=== PATIENT | male | born 1935 | race Caucasian/White ===

== ENCOUNTER 2018-01-14 21:23 | Observation (INO) | payer OTHER ==
[2018-01-14 21:28] VITALS: BP 156/81; PULSE 90; RESP 16; O2SAT 100
[2018-01-14 21:33] VITALS: O2SAT 98
[2018-01-14] MEDS ORDERED: LITH150C PO (21:36)
[2018-01-14 21:37] VITALS: TEMP 97.8
[2018-01-14] MEDS ORDERED: PAXI10TA8 PO (21:41)
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
--- NOTE | 2018-01-14 22:24 | RADRPT ---
EXAM DATE/TIME: 01/14/2018 21:51 [facility] COMPARISON: No previous studies available for comparison. INDICATIONS : Cough MEDICAL HISTORY : Cardiovascular disease. SURGICAL HISTORY : CABG. Pacemaker. ENCOUNTER: Initial ACUITY: 1 day PAIN SCORE: 0/10 LOCATION: chest FINDINGS: A single view of the chest demonstrates a pacer lead overlying right atrium and right ventricle. Basa l atelectasis. No effusion. No pneumothorax. CONCLUSION: 1. Basilar atelectasis. Pacer leads in right atrium and right ventricle. Previous sternotomy. Jesus Manuel Graham MD on January 14, 2018 at 22:20 Board Certified Radiologist. This report was verified electronically.
[2018-01-14 22:26] LABS: AUTOMATED NEUTROPHIL # 10.2 TH/MM3 (1.8-7.7); BASOPHIL # 0.1 TH/MM3 (0-0.2); BASOPHIL % 0.5 % (0.0-2.0); EOSINOPHIL # 0.1 TH/MM3 (0-0.4); EOSINOPHIL % 0.9 % (0.0-4.0); HEMOGLOBIN 12.8 GM/DL (13.0-17.0); LYMPH % 11.6 % (9.0-44.0); LYMPHOCYTE # 1.5 TH/MM3 (1.0-4.8); MEAN CELL VOLUME 88.6 FL (80.0-100.0); MEAN CORPUSCULAR HEMOGLOBIN 30.6 PG (27.0-34.0); MEAN CORPUSCULAR HGB CONC 34.6 % (32.0-36.0); MEAN PLATELET VOLUME 7.9 FL (7.0-11.0); MONOCYTE # 1.3 TH/MM3 (0-0.9); PLATELET COUNT 273 TH/MM3 (150-450); RED BLOOD COUNT 4.17 MIL/MM3 (4.50-5.90); RED CELL DISTRIBUTION WIDTH 14.9 % (11.6-17.2); WHITE BLOOD COUNT 13.3 TH/MM3 (4.0-11.0)
[2018-01-14 22:37] LABS: INTERNATIONAL NORMALIZED RATIO 1.1 RATIO; PROTHROMBIN TIME - PATIENT 10.7 SEC (9.8-11.6)
[2018-01-14 22:48] LABS: ALBUMIN 3.9 GM/DL (3.4-5.0); ALT (GPT) 42 U/L (12-78); AST (GOT) 61 U/L (15-37); BICARBONATE 24.6 MEQ/L (21.0-32.0); BLOOD UREA NITROGEN 28 MG/DL (7-18); CALCIUM 8.4 MG/DL (8.5-10.1); CHLORIDE 105 MEQ/L (98-107); CREATININE 1.15 MG/DL (0.60-1.30); GLOMERULAR FILTRATION RATE 61 ML/MIN (>89); GLUCOSE,RANDOM 98 MG/DL (74-106); SODIUM (NA) 140 MEQ/L (136-145)
[2018-01-14 22:57] LABS: ALKALINE PHOSPHATASE 69 U/L (45-117); TOTAL BILIRUBIN ADULT 1.2 MG/DL (0.2-1.0); TOTAL PROTEIN 7.4 GM/DL (6.4-8.2); TROPONIN I 0.02 NG/ML (0.02-0.05)
[2018-01-15] VITALS (7 sets, daily range): BP systolic 122–161; BP diastolic 72–97; PULSE 79–100; RESP 16–22; TEMP 97.6–98.5; O2SAT 97–98
[2018-01-15] MEDS ORDERED: MAGNESIUM HYDROXIDE SUSP 30 ML CUP PO PRN (00:45)
[2018-01-15] MEDS ORDERED: SODIUM CHLOR 0.9% 1000 ML INJ 1,000 ML IV SCH (00:45)
[2018-01-15] MEDS ORDERED: ONDANSETRON HCL 4 MG/2 ML VIAL IVP PRN (00:45)
[2018-01-15] MEDS ORDERED: BISACODYL 10 MG SUPP RECTAL PRN (00:45)
[2018-01-15] MEDS ORDERED: SODIUM CHLORIDE 0.9% FLUSH 10 ML FLUSH IV FLUSH PRN (00:45)
[2018-01-15] MEDS ORDERED: ACETAMINOPHEN 325 MG TAB PO PRN (00:45)
[2018-01-15] MEDS ORDERED: LACTULOSE SYRUP 20 GM/30 ML CUP PO PRN (00:45)
[2018-01-15] MEDS ORDERED: ACETAMINOPHEN/HYDROcodone 325 MG/5 MG TAB PO PRN (00:45)
[2018-01-15] MEDS ORDERED: SENNOSIDES 8.6 MG TAB PO PRN (00:45)
[2018-01-15] MEDS ORDERED: ACETAMINOPHEN/HYDROcodone 325 MG/10 MG TAB PO PRN (00:45)
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
[2018-01-15 06:30] LABS: TROPONIN I 0.02 NG/ML (0.02-0.05)
[2018-01-15] MEDS ORDERED: LITHIUM CARBONATE 300 MG TAB PO SCH (09:00)
[2018-01-15] MEDS ORDERED: SODIUM CHLORIDE 0.9% FLUSH 10 ML FLUSH IV FLUSH SCH (09:00)
[2018-01-15] MEDS ORDERED: PARoxetine HCL 20 MG TAB PO SCH (09:00)
[2018-01-15] MEDS: DOCUSATE SODIUM 50 MG/SENNA 8.6 MG TAB PO SCH ×2 (09:00→09:32)
[2018-01-15 10:46] LABS: BILIRUBIN, URINE NEG (NEG); BLOOD, URINE TRACE (NEG); GLUCOSE,URINE NEG (NEG); KETONE, URINE TRACE mg/dL (NEG); MUCUS URINE FEW /lpf (OCC); NITRITE,URINE NEG (NEG); PH, URINE 5.5 (5.0-8.5); SQUAMOUS EPITHELIAL CELL URINE <1 /hpf (0-5); URINE COLOR YELLOW (YELLW/STRAW); URINE LEUKOCYTE ESTERASE NEG (NEG)
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
[2018-01-15] MEDS ORDERED: METO25TA3 PO (11:23)
[2018-01-15] MEDS ORDERED: ECASA81 PO (11:23)
[2018-01-15] MEDS ORDERED: ENAL5TAB PO (11:23)
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
[2018-01-15 12:01] LABS: AUTOMATED NEUTROPHIL # 4.6 TH/MM3 (1.8-7.7); BASOPHIL # 0.1 TH/MM3 (0-0.2); BASOPHIL % 0.9 % (0.0-2.0); EOSINOPHIL # 0.3 TH/MM3 (0-0.4); EOSINOPHIL % 4.2 % (0.0-4.0); HEMATOCRIT 37.5 % (39.0-51.0); HEMOGLOBIN 12.9 GM/DL (13.0-17.0); LYMPHOCYTE # 1.6 TH/MM3 (1.0-4.8); MEAN CELL VOLUME 87.9 FL (80.0-100.0); MEAN CORPUSCULAR HEMOGLOBIN 30.4 PG (27.0-34.0); MEAN CORPUSCULAR HGB CONC 34.5 % (32.0-36.0); MEAN PLATELET VOLUME 7.3 FL (7.0-11.0); MONO % 11.2 % (0.0-8.0); MONOCYTE # 0.8 TH/MM3 (0-0.9); NEUT % 61.7 % (16.0-70.0); PLATELET COUNT 221 TH/MM3 (150-450); RED BLOOD COUNT 4.26 MIL/MM3 (4.50-5.90); RED CELL DISTRIBUTION WIDTH 15.3 % (11.6-17.2); WHITE BLOOD COUNT 7.5 TH/MM3 (4.0-11.0)
[2018-01-15 12:24] LABS: ALBUMIN 3.6 GM/DL (3.4-5.0); AST (GOT) 47 U/L (15-37); BICARBONATE 22.8 MEQ/L (21.0-32.0); BLOOD UREA NITROGEN 19 MG/DL (7-18); CALCIUM 8.3 MG/DL (8.5-10.1); CHLORIDE 107 MEQ/L (98-107); CREATININE 0.98 MG/DL (0.60-1.30); GLOMERULAR FILTRATION RATE 74 ML/MIN (>89); GLUCOSE,RANDOM 107 MG/DL (74-106); SODIUM (NA) 139 MEQ/L (136-145)
[2018-01-15 12:25] LABS: ALT (GPT) 36 U/L (12-78)
[2018-01-15 12:29] LABS: ALKALINE PHOSPHATASE 70 U/L (45-117); TOTAL BILIRUBIN ADULT 1.5 MG/DL (0.2-1.0); TOTAL PROTEIN 6.8 GM/DL (6.4-8.2); TROPONIN I LESS THAN 0.02 NG/ML (0.02-0.05)
[2018-01-15] MEDS ORDERED: METOPROLOL TARTRATE 25 MG TAB PO SCH (21:00)
[2018-01-15] MEDS ORDERED: ENALAPRIL MALEATE 5 MG TAB PO SCH (21:00)
[2018-01-16] MEDS ORDERED: ASPIRIN EC 81 MG TABEC PO SCH (09:00)
--- NOTE | 2018-01-18 13:16 | EKG ---
Date Performed: 01/14/2018 Time Performed: 21:33:39 PTAGE: 82 years EKG: Sinus rhythm WITH SHORT NJ INTERVAL WITH OCCASIONAL VENTRICULAR PREMATURE COMPLEXES WITH FREQUENT SUPRAVENTRICULA R PREMATURE COMPLEXES IN A BIGEMINAL PATTERN ANTEROLATERAL MYOCARDIAL INFARCTION MODERATE T-WAVE ABNO RMALITY, CONSIDER INFERIOR ISCHEMIA ABNORMAL ECG NO PREVIOUS TRACING DOCTOR: Froylan Felipe Interpretating Date/Time 01/18/2018 13:14:56
== END 2018-01-15 12:23 | disposition home or self-care (01) ==
LOC: NEPC 21:23 → INTOOBSV 01-15 00:18 → NEDA 01-15 00:18 → HCIS 01-15 03:15
PROVIDERS: ADMIT Family Medicine; ATTEND Family Medicine
DX: T82.198A Other mechanical complication of other cardiac electronic device, initial encounter (principal); M62.82 Rhabdomyolysis; D72.829 Elevated white blood cell count, unspecified; I11.0 Hypertensive heart disease with heart failure; I50.9 Heart failure, unspecified; I47.2 Ventricular tachycardia; I25.5 Ischemic cardiomyopathy; E78.5 Hyperlipidemia, unspecified; F31.9 Bipolar disorder, unspecified; I25.10 Atherosclerotic heart disease of native coronary artery without angina pectoris; J98.11 Atelectasis; F43.9 Reaction to severe stress, unspecified; F12.90 Cannabis use, unspecified, uncomplicated
CPT/HCPCS: 71045; 80053; 80178; 80307; 81001; 82550; 82552; 83690; 83735; 83880; 84443; 84484; 85025; 85610; 85730; 93005; 99285; G0378

== ENCOUNTER 2018-01-18 03:49 | Emergency (ER) | payer OTHER ==
[~2018-01-18] VITALS: Ht 167.6 cm; Wt 65.0 kg
[~2018-01-18 03:49] MED LIST: ECASA81 PO; ENAL5TAB PO; LITH150C PO; METO25TA3 PO; PAXI10TA8 PO
[2018-01-18 04:21] VITALS: BP 106/53; PULSE 73; RESP 18; TEMP 98.6; O2SAT 96
[2018-01-18 06:20] VITALS: BP 124/58; PULSE 78; RESP 20; O2SAT 100
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
[2018-01-18] MEDS ORDERED: SODIUM CHLORIDE 0.9% FLUSH 10 ML FLUSH IVF PRN (06:45)
[2018-01-18 06:50] LABS: AUTOMATED NEUTROPHIL # 6.9 TH/MM3 (1.8-7.7); BASOPHIL # 0.1 TH/MM3 (0-0.2); BASOPHIL % 0.6 % (0.0-2.0); EOSINOPHIL # 0.2 TH/MM3 (0-0.4); EOSINOPHIL % 1.9 % (0.0-4.0); HEMATOCRIT 33.1 % (39.0-51.0); HEMOGLOBIN 11.7 GM/DL (13.0-17.0); LYMPH % 17.3 % (9.0-44.0); LYMPHOCYTE # 1.7 TH/MM3 (1.0-4.8); MEAN CELL VOLUME 88.5 FL (80.0-100.0); MEAN CORPUSCULAR HEMOGLOBIN 31.1 PG (27.0-34.0); MEAN CORPUSCULAR HGB CONC 35.2 % (32.0-36.0); MONO % 11.4 % (0.0-8.0); MONOCYTE # 1.1 TH/MM3 (0-0.9); NEUT % 68.8 % (16.0-70.0); PLATELET COUNT 217 TH/MM3 (150-450); RED BLOOD COUNT 3.74 MIL/MM3 (4.50-5.90)
--- NOTE | 2018-01-18 07:00 | RADRPT ---
EXAM DATE/TIME: 01/18/2018 06:39 [facility] COMPARISON: CHEST SINGLE AP, January 14, 2018, 21:51. INDICATIONS : Altered mental status. MEDICAL HISTORY : Cardiovascular disease. SURGICAL HISTORY : CABG. Pacemaker. ENCOUNTER: Initial ACUITY: 1 day PAIN SCORE: 0/10 LOCATION: Bilateral chest FINDINGS: Portable AP view of the chest demonstrates a normal-sized cardiac silhouette in this patient post med cindy sternotomy. Left chest wall cardiac pacing device remains present. No effusion, consolidation, or pneumothorax is identified. There are stable calcified granulomas in the left upper lobe. The bones and soft tissues demonstrate no acute finding. CONCLUSION: No acute cardiopulmonary abnormality is identified in this patient post median sternotomy. Guero Marcial MD on January 18, 2018 at 6:57 Board Certified Radiologist. This report was verified electronically.
[2018-01-18 07:08] VITALS: BP 135/60; PULSE 75; RESP 18; O2SAT 100
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
[2018-01-18 07:28] LABS: TROPONIN I 0.02 NG/ML (0.02-0.05)
[2018-01-18 07:31] LABS: INTERNATIONAL NORMALIZED RATIO 1.1 RATIO; PROTHROMBIN TIME - PATIENT 11.1 SEC (9.8-11.6)
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
[2018-01-18 07:49] LABS: BICARBONATE 23.5 MEQ/L (21.0-32.0); CALCIUM 7.7 MG/DL (8.5-10.1); CREATININE 1.05 MG/DL (0.60-1.30)
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
[2018-01-18] MEDS ORDERED: METO25TA3 PO (11:20)
--- NOTE | 2018-01-18 18:30 | EKG ---
Date Performed: 01/18/2018 Time Performed: 04:24:39 PTAGE: 82 years EKG: Sinus rhythm WITH SUPRAVENTRICULAR AND VENTRICULAR PREMATURE COMPLEXES POSSIBLE ANTERIOR MYOCARDIAL INFARCTION PO SSIBLE INFERIOR MYOCARDIAL INFARCTION ABNORMAL ECG NO PREVIOUS TRACING DOCTOR: Reg Amanda Interpretating Date/Time 01/18/2018 18:29:12
== END 2018-01-18 12:06 | disposition home or self-care (01) ==
LOC: NEPC 03:49
DX: I47.1 Supraventricular tachycardia (principal); I50.9 Heart failure, unspecified; I10 Essential (primary) hypertension; R94.31 Abnormal electrocardiogram [ECG] [EKG]; Z95.810 Presence of automatic (implantable) cardiac defibrillator
CPT/HCPCS: 70450; 71045; 72125; 80048; 80178; 80307; 82550; 82552; 83735; 83880; 84484; 85025; 85610; 93005

== ENCOUNTER 2018-01-22 20:51 | Emergency (ER) | payer OTHER ==
[~2018-01-22] VITALS: Ht 165.1 cm; Wt 72.0 kg
[~2018-01-22 20:51] MED LIST changes: -ENAL5TAB PO
[2018-01-22 21:11] VITALS: BP 94/53; PULSE 81; RESP 20; TEMP 98.8; O2SAT 99
[2018-01-22] MEDS ORDERED: ATOR80TA45 PO (21:29)
[2018-01-22] MEDS ORDERED: PRAZ1CAP PO (21:29)
--- NOTE | 2018-01-22 21:38 | RADRPT ---
EXAM DATE/TIME: 01/22/2018 21:26 [facility] COMPARISON: No previous studies available for comparison. INDICATIONS : Chest pain. Possible shock from defibrillator. MEDICAL HISTORY : None. SURGICAL HISTORY : CABG. Defibrillator. ENCOUNTER: Initial ACUITY: 1 day PAIN SCORE: 2/10 LOCATION: Bilateral chest FINDINGS: No infiltrate, effusion or pneumothorax. Heart size stable, within normal limits. Median sternotomy changes are again noted. There is a cardia c pacer/defibrillator again seen. CONCLUSION: No evidence of acute cardiopulmonary disease. Guero Simms MD on January 22, 2018 at 21:35 Board Certified Radiologist. This report was verified electronically.
[2018-01-22 21:44] LABS: BASOPHIL % 0.5 % (0.0-2.0); EOSINOPHIL # 0.1 TH/MM3 (0-0.4); EOSINOPHIL % 1.3 % (0.0-4.0); HEMOGLOBIN 10.7 GM/DL (13.0-17.0); LYMPH % 13.8 % (9.0-44.0); LYMPHOCYTE # 1.1 TH/MM3 (1.0-4.8); MEAN CELL VOLUME 90.1 FL (80.0-100.0); MEAN CORPUSCULAR HEMOGLOBIN 31.1 PG (27.0-34.0); MEAN CORPUSCULAR HGB CONC 34.5 % (32.0-36.0); MEAN PLATELET VOLUME 8.2 FL (7.0-11.0); MONO % 8.8 % (0.0-8.0); MONOCYTE # 0.7 TH/MM3 (0-0.9); NEUT % 75.6 % (16.0-70.0); PLATELET COUNT 216 TH/MM3 (150-450); RED BLOOD COUNT 3.44 MIL/MM3 (4.50-5.90); RED CELL DISTRIBUTION WIDTH 15.5 % (11.6-17.2); WHITE BLOOD COUNT 7.9 TH/MM3 (4.0-11.0)
[2018-01-22 21:45] LABS: BICARBONATE 25.9 MEQ/L (21.0-32.0); BLOOD UREA NITROGEN 21 MG/DL (7-18); CALCIUM 7.9 MG/DL (8.5-10.1); CHLORIDE 109 MEQ/L (98-107); GLOMERULAR FILTRATION RATE 72 ML/MIN (>89); GLUCOSE,RANDOM 105 MG/DL (74-106); SODIUM (NA) 141 MEQ/L (136-145)
[2018-01-22 21:49] LABS: TROPONIN I LESS THAN 0.02 NG/ML (0.02-0.05)
[2018-01-22 21:53] LABS: INTERNATIONAL NORMALIZED RATIO 1.1 RATIO; PROTHROMBIN TIME - PATIENT 11.4 SEC (9.8-11.6)
--- NOTE | 2018-01-22 22:08 | PD ---
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 Patient states that he was at rest and had no symptoms before the shock. On presentation he denies headache, dizziness, chest pain, palpitations, shortness breath, abdominal pain, nausea, vomiting. He denies taking alcohol today. He states that he had a firing ~4 days ago. Device was interrogated at that time. He states that he is to see his primary care provider tomorrow to set up an appointment with a engine boss. States that his devices Biotronik. PFSH Past Medical History Anxiety: Yes Depression: Yes Cardiac Catheterization: Yes Cardiovascular Problems: Yes (6 bypass) High Cholesterol: Yes Chest Pain: Yes Congestive Heart Failure: Yes Diabetes: No Diminished Hearing: No Hiatal Hernia: Yes Hypertension: Yes Psychiatric: Yes (bipolar) Reproductive: Yes (enlarge prostate) Tetanus Vaccination: Unknown Past Surgical History Body Medical Devices: pacer/defib BIOTECH Cardiac Surgery: Yes (pacemaker/defibrillator) Pacemaker: Yes (BIOTECH) Thoracic Surgery: Yes (cabg) Social History Alcohol Use: Yes (2- 16 oz every other day) Tobacco Use: No Substance Use: No Allergies-Medications (Allergen,Severity, Reaction): Uncoded Allergies: HAS BIOTRONIK AICD OF 01/18/18 (Adverse Reaction, Unknown, 01/18/18) Reported Meds & Prescriptions Reported Meds & Active Scripts Active Metoprolol Tartrate 25 Mg Tab 25 Mg PO Q12HR Aspirin DR (Aspirin) 81 Mg Tabdr 81 Mg PO DAILY Reported Atorvastatin (Atorvastatin Calcium) 80 Mg Tab 80 Mg PO HS Prazosin (Prazosin HCl) 1 Mg Cap 1 Mg PO HS Paxil (Paroxetine HCl) 10 Mg Tab 10 Mg PO DAILY [place] Carbonate 150 Mg Cap 150 Mg PO QID Review of Systems Except as stated in HPI: all other systems reviewed are Neg Physical Exam Exam Limitations: Other: (patient seen in the ambulance all, exam limited due to privacy issues.) Narrative GENERAL: Well-nourished, well-developed somnolent white male in no acute distress. Arouses easily to voice and touch. SKIN: Focused skin assessment warm/dry. HEAD: Normocephalic. EYES: No scleral icterus. No injection or drainage. NECK: Supple, trachea midline. No JVD or lymphadenopathy. CARDIOVASCULAR: Regular rate and rhythm without murmurs, gallops, or rubs. RESPIRATORY: Breath sounds equal bilaterally, very mild end expiratory wheezing.. No accessory muscle use. GASTROINTESTINAL: Abdomen soft, non-tender, nondistended. MUSCULOSKELETAL: No cyanosis,. 1+ edema in the left lower extremity. Homans sign negative. BACK: Nontender without obvious deformity. No CVA tenderness. Data Data Last Documented VS Vital Signs Date Time Temp Pulse Resp B/P (MAP) Pulse Ox O2 Delivery O2 Flow Rate FiO2 01/22/18 23:52 98 01/22/18 23:44 Room Air 01/22/18 21:18 81 20 01/22/18 21:11 98.8 94/53 (67) Orders Orders Electrocardiogram (01/22/18 21:03) Complete Blood Count With Diff (01/22/18 21:03) Basic Metabolic Panel (Bmp) (01/22/18 21:03) Ckmb (Isoenzyme) Profile (01/22/18 21:03) Troponin I (01/22/18 21:03) Chest, Single Ap (01/22/18 21:03) Iv Access Insert/Monitor (01/22/18 21:03) Ecg Monitoring (01/22/18 21:03) Oxygen Administration (01/22/18 21:03) Oximetry (01/22/18 21:03) Act Partial Throm Time (Ptt) (01/22/18 21:03) Prothrombin Time / Inr (Pt) (01/22/18 21:03) CKMB (01/22/18 21:07) CKMB% (01/22/18 21:07) Ed Discharge Order (01/23/18 06:41) Labs Laboratory Tests Test 01/22/18 21:06 01/22/18 21:07 White Blood Count 7.9 TH/MM3 Red Blood Count 3.44 MIL/MM3 Hemoglobin 10.7 GM/DL Hematocrit 31.0 % Mean Corpuscular Volume 90.1 FL Mean Corpuscular Hemoglobin 31.1 PG Mean Corpuscular Hemoglobin Concent 34.5 % Red Cell Distribution Width 15.5 % Platelet Count 216 TH/MM3 Mean Platelet Volume 8.2 FL Neutrophils (%) (Auto) 75.6 % Lymphocytes (%) (Auto) 13.8 % Monocytes (%) (Auto) 8.8 % Eosinophils (%) (Auto) 1.3 % Basophils (%) (Auto) 0.5 % Neutrophils # (Auto) 6.0 TH/MM3 Lymphocytes # (Auto) 1.1 TH/MM3 Monocytes # (Auto) 0.7 TH/MM3 Eosinophils # (Auto) 0.1 TH/MM3 Basophils # (Auto) 0.0 TH/MM3 CBC Comment DIFF FINAL Differential Comment Prothrombin Time 11.4 SEC Prothromb Time International Ratio 1.1 RATIO Activated Partial Thromboplast Time 25.5 SEC Blood Urea Nitrogen 21 MG/DL Creatinine 1.00 MG/DL Random Glucose 105 MG/DL Calcium Level 7.9 MG/DL Sodium Level 141 MEQ/L Potassium Level 3.5 MEQ/L Chloride Level 109 MEQ/L Carbon Dioxide Level 25.9 MEQ/L Anion Gap 6 MEQ/L Estimat Glomerular Filtration Rate 72 ML/MIN Total Creatine Kinase 146 U/L Creatine Kinase MB 2.6 NG/ML Troponin I LESS THAN 0.02 NG/ML MDM Medical Decision Making Medical Screen Exam Complete: Yes Emergency Medical Condition: Yes Differential Diagnosis Dysrhythmia versus metabolic derangement versus ACS versus other Narrative Course 82-year-old male with PMH of dysrhythmia, status post AICD implantation presents to the ED after his AICD fired around 8:00 this evening. Patient states that he was at rest and had no symptoms before the shock. On presentation he denies headache, dizziness, chest pain, palpitations, shortness breath, abdominal pain, nausea, vomiting. He denies taking alcohol today. He states that he had a firing ~4 days ago. Device was interrogated at that time. He states that he is to see his primary care provider tomorrow to set up an appointment with a engine boss. States that his devices Biotronik. Vitals reviewed. On exam the patient is somnolent, arouses easily to voice. Chest CTA B. Abdomen soft and nontender. 1+ edema of the left lower extremity, Homans sign negative. Cardiac workup initiated. [employer] rep was called to interrogate the device. Patient seen and examined in the ambulance [facility] and awaiting bed placement. Please see oncoming provider's notes for disposition. Nafisa Martinez Jan 22, 2018 22:08
[2018-01-22 23:52] VITALS: O2SAT 98
--- NOTE | 2018-01-22 23:56 | PD ---
Data Data Last Documented VS Vital Signs Date Time Temp Pulse Resp B/P (MAP) Pulse Ox O2 Delivery O2 Flow Rate FiO2 01/22/18 23:52 98 01/22/18 23:44 Room Air 01/22/18 21:18 81 20 01/22/18 21:11 98.8 94/53 (67) Orders Orders Electrocardiogram (01/22/18 21:03) Complete Blood Count With Diff (01/22/18 21:03) Basic Metabolic Panel (Bmp) (01/22/18 21:03) Ckmb (Isoenzyme) Profile (01/22/18 21:03) Troponin I (01/22/18 21:03) Chest, Single Ap (01/22/18 21:03) Iv Access Insert/Monitor (01/22/18 21:03) Ecg Monitoring (01/22/18 21:03) Oxygen Administration (01/22/18 21:03) Oximetry (01/22/18 21:03) Act Partial Throm Time (Ptt) (01/22/18 21:03) Prothrombin Time / Inr (Pt) (01/22/18 21:03) CKMB (01/22/18 21:07) CKMB% (01/22/18 21:07) Labs Laboratory Tests Test 01/22/18 21:06 01/22/18 21:07 White Blood Count 7.9 TH/MM3 Red Blood Count 3.44 MIL/MM3 Hemoglobin 10.7 GM/DL Hematocrit 31.0 % Mean Corpuscular Volume 90.1 FL Mean Corpuscular Hemoglobin 31.1 PG Mean Corpuscular Hemoglobin Concent 34.5 % Red Cell Distribution Width 15.5 % Platelet Count 216 TH/MM3 Mean Platelet Volume 8.2 FL Neutrophils (%) (Auto) 75.6 % Lymphocytes (%) (Auto) 13.8 % Monocytes (%) (Auto) 8.8 % Eosinophils (%) (Auto) 1.3 % Basophils (%) (Auto) 0.5 % Neutrophils # (Auto) 6.0 TH/MM3 Lymphocytes # (Auto) 1.1 TH/MM3 Monocytes # (Auto) 0.7 TH/MM3 Eosinophils # (Auto) 0.1 TH/MM3 Basophils # (Auto) 0.0 TH/MM3 CBC Comment DIFF FINAL Differential Comment Prothrombin Time 11.4 SEC Prothromb Time International Ratio 1.1 RATIO Activated Partial Thromboplast Time 25.5 SEC Blood Urea Nitrogen 21 MG/DL Creatinine 1.00 MG/DL Random Glucose 105 MG/DL Calcium Level 7.9 MG/DL Sodium Level 141 MEQ/L Potassium Level 3.5 MEQ/L Chloride Level 109 MEQ/L Carbon Dioxide Level 25.9 MEQ/L Anion Gap 6 MEQ/L Estimat Glomerular Filtration Rate 72 ML/MIN Total Creatine Kinase 146 U/L Creatine Kinase MB 2.6 NG/ML Troponin I LESS THAN 0.02 NG/ML MDM Supervised Visit with EDWARD: Yes Narrative Course I, Dr. Zhu, have reviewed the advance practice practitioner's documentation and am in agreement, met with the patient face to face, made the diagnosis, and the medical decision making was done by me. See her note for further details. 82-year-old male with history of dysrhythmia with an AICD that was placed 2 years ago in [place], recently moved here about 4 months ago, presents for evaluation of AICD firing. The patient was seen in the emergency department 4 days ago for the same and was admitted on 01/15/18 and discharged on that same day for AICD firing as well. The AICD was interpreted by [employer] 4 days ago and was found to fire appropriately for an episode of SVT. Cardiology was contacted at that time, and the recommendation was for the patient to continue taking his metoprolol. The patient reports that he is taking his metoprolol as prescribed. The patient reports feeling well. He is awake and alert and is in no acute distress. He denies chest pain or dyspnea. Vital signs reviewed. CBC is remarkable for hemoglobin 10.7 hematocrit 31, which is slightly lower than it was 4 days ago. His stool is heme negative and brown. BMP is unremarkable. Cardiac enzymes are negative. Chest x-ray shows no evidence of acute cardiopulmonary disease. [employer] is artery been contacted by the PA, so we will await for them to present to the emergency department to interrogate the patient's AICD. Apparently the patient has an appointment with a primary care physician tomorrow who will arrange for cardiology follow-up. At approximately 1:00 AM at the end of my shift patient was signed out to BIANCA Burden awaiting AICD interrogation by [employer]. It appears that the patient's AICD is working, and if the interrogation does not show any abnormalities, he can be safely discharged with outpatient follow-up. Diagnosis Primary Impression: AICD discharge Referrals: Primary Care Physician 1 day Additional Instruction: Follow-up with your primary care physician tomorrow. Follow-up with a mail distribution clerk as soon as possible. Return to the emergency department for worsening symptoms or any other concerns. Disposition: 01 DISCHARGE HOME Condition: Stable Anmol Zhu MD Jan 22, 2018 23:56
--- NOTE | 2018-01-23 06:46 | PD ---
Physical Exam Date Seen by Provider: Jan 23, 2018 Time Seen by Provider: 06:42 Narrative GENERAL: This is a well-nourished, well-developed patient, in no apparent distress. SKIN: No rashes, ecchymoses or lesions. Warm and dry. HEAD: Atraumatic. Normocephalic. EYES: PERRL, EOMI, no discharge or injection. No scleral icterus. EARS: Clear NOSE: Nasal turbinates appear normal. THROAT: Mucosa pink and moist. Airway patent. NECK: Trachea midline. supple, moves head freely. LUNGS: Clear to auscultation. CV: Regular in rhythm. ABDOMEN: Soft nontender. EXT: No clubbing cyanosis or edema. Data Data Last Documented VS Vital Signs Date Time Temp Pulse Resp B/P (MAP) Pulse Ox O2 Delivery O2 Flow Rate FiO2 01/22/18 23:52 98 01/22/18 23:44 Room Air 01/22/18 21:18 81 20 01/22/18 21:11 98.8 94/53 (67) Orders Orders Electrocardiogram (01/22/18 21:03) Complete Blood Count With Diff (01/22/18 21:03) Basic Metabolic Panel (Bmp) (01/22/18 21:03) Ckmb (Isoenzyme) Profile (01/22/18 21:03) Troponin I (01/22/18 21:03) Chest, Single Ap (01/22/18 21:03) Iv Access Insert/Monitor (01/22/18 21:03) Ecg Monitoring (01/22/18 21:03) Oxygen Administration (01/22/18 21:03) Oximetry (01/22/18 21:03) Act Partial Throm Time (Ptt) (01/22/18 21:03) Prothrombin Time / Inr (Pt) (01/22/18 21:03) CKMB (01/22/18 21:07) CKMB% (01/22/18 21:07) Ed Discharge Order (01/23/18 06:41) Labs Laboratory Tests Test 01/22/18 21:06 01/22/18 21:07 White Blood Count 7.9 TH/MM3 Red Blood Count 3.44 MIL/MM3 Hemoglobin 10.7 GM/DL Hematocrit 31.0 % Mean Corpuscular Volume 90.1 FL Mean Corpuscular Hemoglobin 31.1 PG Mean Corpuscular Hemoglobin Concent 34.5 % Red Cell Distribution Width 15.5 % Platelet Count 216 TH/MM3 Mean Platelet Volume 8.2 FL Neutrophils (%) (Auto) 75.6 % Lymphocytes (%) (Auto) 13.8 % Monocytes (%) (Auto) 8.8 % Eosinophils (%) (Auto) 1.3 % Basophils (%) (Auto) 0.5 % Neutrophils # (Auto) 6.0 TH/MM3 Lymphocytes # (Auto) 1.1 TH/MM3 Monocytes # (Auto) 0.7 TH/MM3 Eosinophils # (Auto) 0.1 TH/MM3 Basophils # (Auto) 0.0 TH/MM3 CBC Comment DIFF FINAL Differential Comment Prothrombin Time 11.4 SEC Prothromb Time International Ratio 1.1 RATIO Activated Partial Thromboplast Time 25.5 SEC Blood Urea Nitrogen 21 MG/DL Creatinine 1.00 MG/DL Random Glucose 105 MG/DL Calcium Level 7.9 MG/DL Sodium Level 141 MEQ/L Potassium Level 3.5 MEQ/L Chloride Level 109 MEQ/L Carbon Dioxide Level 25.9 MEQ/L Anion Gap 6 MEQ/L Estimat Glomerular Filtration Rate 72 ML/MIN Total Creatine Kinase 146 U/L Creatine Kinase MB 2.6 NG/ML Troponin I LESS THAN 0.02 NG/ML MDM Medical Record Reviewed: Yes Supervised Visit with EDWARD: Yes Differential Diagnosis . Narrative Course This is an 82-year-old patient with a AICD which allegedly had fired. The patient has been resting comfortable. They have not had any additional ectopy or firing of his defibrillator. I was asked to have the defibrillator interrogated. If the help desk representative did not show up in the morning and the patient did not have any additional defibrillation that the patient can be safely discharged home per Dr. Zhu patient is advised. The to continue their beta-froylan twice a day as directed. The patient is informed of the treatment plan and follow-up and is medically stable for discharge. Diagnosis Primary Impression: AICD discharge Referrals: Primary Care Physician 1 day Additional Instruction: Follow-up with your primary care physician tomorrow. Follow-up with a bulk clerk as soon as possible. Return to the emergency department for worsening symptoms or any other concerns. Disposition: 01 DISCHARGE HOME Condition: Stable Jesus Manuel Simental Jan 23, 2018 06:46
--- NOTE | 2018-01-23 19:57 | EKG ---
Date Performed: 01/22/2018 Time Performed: 20:57:20 PTAGE: 82 years EKG: Sinus rhythm WITH SHORT MO INTERVAL WITH OCCASIONAL ATRIAL AND VENTRICULAR PREMATURE COMPLEXES PROBABLE INFERIOR MYOCARDIAL INFARCTION ANTEROLATERAL MYOCARDIAL INFARCTION ABNORMAL ECG PREVIOUS TRACING : 01/18/2018 04.24 Since the previous tracing, no significant change noted DOCTOR: Flakita Agustin Interpretating Date/Time 01/23/2018 19:56:19
== END 2018-01-23 06:50 | disposition home or self-care (01) ==
LOC: NEDAMB 20:51 → NEPD 01-23 06:50
DX: T82.198A Other mechanical complication of other cardiac electronic device, initial encounter (principal); R94.31 Abnormal electrocardiogram [ECG] [EKG]; E78.00 Pure hypercholesterolemia, unspecified; I11.0 Hypertensive heart disease with heart failure; I50.9 Heart failure, unspecified; F41.9 Anxiety disorder, unspecified; F31.9 Bipolar disorder, unspecified
CPT/HCPCS: 71045; 80048; 82550; 82552; 84484; 85025; 85610; 85730; 93005; 99285

== ENCOUNTER 2018-01-24 01:36 | Emergency (ER) | payer OTHER ==
[~2018-01-24] VITALS: Ht 165.1 cm; Wt 64.5 kg
[~2018-01-24 01:36] MED LIST changes: +ATOR80TA45 PO; +PRAZ1CAP PO
[2018-01-24 01:44] VITALS: BP 145/66; PULSE 70; RESP 16; TEMP 98.1; O2SAT 100
--- NOTE | 2018-01-24 01:52 | PD ---
HPI Chief Complaint: Tack Cutter Problem Time Seen by Provider: 01:47 Travel History International Travel<30 days: No Contact w/Intl Traveler<30days: No Traveled to known affect area: No History of Present Illness HPI Patient comes in stating that he has had his defibrillator fire at least twice today. Denies feeling any kind of dizziness or lightheadedness or chest pain or diaphoresis or any symptoms prior to getting shocked. Patient is concerned that this device may not be functioning correctly... Patient states that he has a Biotronik device. Patient denies any allergies to medications Patient is [facility] Patient has psychiatric history heart history however he could not further elaborate on what heart history he had. PFSH Past Medical History Hx Anticoagulant Therapy: Yes (Aspirin) Anxiety: Yes Depression: Yes Cardiac Catheterization: Yes Cardiovascular Problems: Yes (A-Fib, AICD) High Cholesterol: Yes Chest Pain: Yes Congestive Heart Failure: Yes Diabetes: No Diminished Hearing: No Hiatal Hernia: Yes Hypertension: Yes Psychiatric: Yes (bipolar) Reproductive: Yes (enlarge prostate) Past Surgical History Body Medical Devices: pacer/defib BIOTECH Cardiac Surgery: Yes (pacemaker/defibrillator) Pacemaker: Yes (BIOTECH) Thoracic Surgery: Yes (cabg) Social History Alcohol Use: Yes (2- 16 oz every other day) Tobacco Use: No Substance Use: No Allergies-Medications (Allergen,Severity, Reaction): Uncoded Allergies: HAS BIOTRONIK AICD OF 01/18/18 (Adverse Reaction, Unknown, 01/18/18) Reported Meds & Prescriptions Reported Meds & Active Scripts Active Metoprolol Tartrate 25 Mg Tab 25 Mg PO Q12HR Aspirin DR (Aspirin) 81 Mg Tabdr 81 Mg PO DAILY Reported Atorvastatin (Atorvastatin Calcium) 80 Mg Tab 80 Mg PO HS Prazosin (Prazosin HCl) 1 Mg Cap 1 Mg PO HS Paxil (Paroxetine HCl) 10 Mg Tab 10 Mg PO DAILY [place] Carbonate 150 Mg Cap 150 Mg PO QID Review of Systems Except as stated in HPI: all other systems reviewed are Neg General / Constitutional: No: Fever Eyes: No: Visual changes HENT: No: Headaches Cardiovascular: Positive: Other (Chest soreness) Respiratory: No: Shortness of Breath Gastrointestinal: No: Abdominal Pain Genitourinary: No: Dysuria Musculoskeletal: No: Pain Skin: No Rash Neurologic: No: Weakness Psychiatric: No: Depression Endocrine: No: Polydipsia Hematologic/Lymphatic: No: Easy Bruising Physical Exam Narrative GENERAL: SKIN: Warm and dry. HEAD: Atraumatic. Normocephalic. EYES: Pupils equal and round. No scleral icterus. No injection or drainage. ENT: No nasal bleeding or discharge. Mucous membranes pink and moist. NECK: Trachea midline. No JVD. CARDIOVASCULAR: Regular rate and rhythm. RESPIRATORY: No accessory muscle use. Clear to auscultation. Breath sounds equal bilaterally. GASTROINTESTINAL: Abdomen soft, non-tender, nondistended. MUSCULOSKELETAL: Extremities without clubbing, cyanosis, or edema. No obvious deformities. NEUROLOGICAL: Awake and alert. No obvious cranial nerve deficits. Motor grossly within normal limits. Five out of 5 muscle strength in the arms and legs. Normal speech. PSYCHIATRIC: Appropriate mood and affect; insight and judgment normal. Data Data Last Documented VS Vital Signs Date Time Temp Pulse Resp B/P (MAP) Pulse Ox O2 Delivery O2 Flow Rate FiO2 01/24/18 01:44 98.1 70 16 145/66 (92) 100 Orders Orders Electrocardiogram (01/24/18 01:47) B-Type Natriuretic Peptide (01/24/18 01:47) Ckmb (Isoenzyme) Profile (01/24/18 01:47) Complete Blood Count With Diff (01/24/18 01:47) Comprehensive Metabolic Panel (01/24/18 01:47) Prothrombin Time / Inr (Pt) (01/24/18 01:47) Act Partial Throm Time (Ptt) (01/24/18 01:47) Troponin I (01/24/18 01:47) Lipase (01/24/18 01:47) Chest, Single Ap (01/24/18 01:47) Ecg Monitoring (01/24/18 01:47) Iv Access Insert/Monitor (01/24/18 01:47) Oximetry (01/24/18 01:47) Sodium Chlorid 0.9% 500 Ml Inj (Ns 500 M (01/24/18 02:00) CKMB (01/24/18 01:55) CKMB% (01/24/18 01:55) Labs Laboratory Tests Test 01/24/18 01:55 White Blood Count 10.2 TH/MM3 Red Blood Count 3.64 MIL/MM3 Hemoglobin 11.2 GM/DL Hematocrit 33.1 % Mean Corpuscular Volume 90.9 FL Mean Corpuscular Hemoglobin 30.7 PG Mean Corpuscular Hemoglobin Concent 33.8 % Red Cell Distribution Width 15.6 % Platelet Count 242 TH/MM3 Mean Platelet Volume 7.8 FL Neutrophils (%) (Auto) 70.4 % Lymphocytes (%) (Auto) 18.3 % Monocytes (%) (Auto) 8.3 % Eosinophils (%) (Auto) 2.1 % Basophils (%) (Auto) 0.9 % Neutrophils # (Auto) 7.2 TH/MM3 Lymphocytes # (Auto) 1.9 TH/MM3 Monocytes # (Auto) 0.8 TH/MM3 Eosinophils # (Auto) 0.2 TH/MM3 Basophils # (Auto) 0.1 TH/MM3 CBC Comment DIFF FINAL Differential Comment Prothrombin Time 11.0 SEC Prothromb Time International Ratio 1.1 RATIO Activated Partial Thromboplast Time 26.6 SEC Blood Urea Nitrogen 17 MG/DL Creatinine 1.18 MG/DL Random Glucose 94 MG/DL Total Protein 7.4 GM/DL Albumin 3.7 GM/DL Calcium Level 8.5 MG/DL Alkaline Phosphatase 66 U/L Aspartate Amino Transf (AST/SGOT) 25 U/L Alanine Aminotransferase (ALT/SGPT) 37 U/L Total Bilirubin 1.0 MG/DL Sodium Level 138 MEQ/L Potassium Level 3.8 MEQ/L Chloride Level 105 MEQ/L Carbon Dioxide Level 25.8 MEQ/L Anion Gap 7 MEQ/L Estimat Glomerular Filtration Rate 59 ML/MIN Total Creatine Kinase 140 U/L Creatine Kinase MB 3.5 NG/ML Troponin I LESS THAN 0.02 NG/ML Lipase 292 U/L [facility] Medical Decision Making Medical Screen Exam Complete: Yes Emergency Medical Condition: Yes Medical Record Reviewed: Yes Differential Diagnosis Possible AICD discharge versus an error versus appropriately Narrative Course CBC is negative for any leukocytosis, mild anemia /33, normal lately count, no left shift. Regulation profile is within normal limits Chemistry shows normal electrolytes, normal kidney pancreas and liver functions. Patient also has a negative troponin. Interrogation done by the all source intelligence technician from [employer] shows a device is unable there were no shocks that there were no evidence of any V. tach V. tach A. fib or SVT no shocks delivered. Diagnosis Primary Impression: MEDICALLY CLEARED Patient Instructions: General Instructions Disposition: DISCHARGE HOME Condition: Stable Richie Shafer MD Jan 24, 2018 01:52
[2018-01-24] MEDS ORDERED: SODIUM CHLORID 0.9% 500 ML INJ 500 ML IV ONE (02:00)
[2018-01-24 02:14] LABS: AUTOMATED NEUTROPHIL # 7.2 TH/MM3 (1.8-7.7); BASOPHIL # 0.1 TH/MM3 (0-0.2); BASOPHIL % 0.9 % (0.0-2.0); EOSINOPHIL # 0.2 TH/MM3 (0-0.4); EOSINOPHIL % 2.1 % (0.0-4.0); HEMATOCRIT 33.1 % (39.0-51.0); HEMOGLOBIN 11.2 GM/DL (13.0-17.0); LYMPH % 18.3 % (9.0-44.0); LYMPHOCYTE # 1.9 TH/MM3 (1.0-4.8); MEAN CELL VOLUME 90.9 FL (80.0-100.0); MEAN CORPUSCULAR HEMOGLOBIN 30.7 PG (27.0-34.0); MEAN CORPUSCULAR HGB CONC 33.8 % (32.0-36.0); MEAN PLATELET VOLUME 7.8 FL (7.0-11.0); MONO % 8.3 % (0.0-8.0); MONOCYTE # 0.8 TH/MM3 (0-0.9); NEUT % 70.4 % (16.0-70.0); PLATELET COUNT 242 TH/MM3 (150-450); RED BLOOD COUNT 3.64 MIL/MM3 (4.50-5.90); RED CELL DISTRIBUTION WIDTH 15.6 % (11.6-17.2); WHITE BLOOD COUNT 10.2 TH/MM3 (4.0-11.0)
[2018-01-24 02:21] LABS: INTERNATIONAL NORMALIZED RATIO 1.1 RATIO
[2018-01-24 02:28] LABS: ALBUMIN 3.7 GM/DL (3.4-5.0); ALT (GPT) 37 U/L (12-78); AST (GOT) 25 U/L (15-37); BICARBONATE 25.8 MEQ/L (21.0-32.0); BLOOD UREA NITROGEN 17 MG/DL (7-18); CALCIUM 8.5 MG/DL (8.5-10.1); CHLORIDE 105 MEQ/L (98-107); CREATININE 1.18 MG/DL (0.60-1.30); GLOMERULAR FILTRATION RATE 59 ML/MIN (>89); GLUCOSE,RANDOM 94 MG/DL (74-106); SODIUM (NA) 138 MEQ/L (136-145)
[2018-01-24 02:32] LABS: ALKALINE PHOSPHATASE 66 U/L (45-117); TOTAL PROTEIN 7.4 GM/DL (6.4-8.2); TROPONIN I LESS THAN 0.02 NG/ML (0.02-0.05)
--- NOTE | 2018-01-24 02:32 | RADRPT ---
EXAM DATE/TIME: 01/24/2018 01:58 [facility] COMPARISON: CHEST SINGLE AP, January 22, 2018, 21:26. INDICATIONS : Pacemaker firing, chest pains. MEDICAL HISTORY : None. SURGICAL HISTORY : Pacemaker. CABG. ENCOUNTER: Initial ACUITY: 1 day PAIN SCORE: 2/10 LOCATION: Left chest FINDINGS: A single view of the chest demonstrates the lungs to be symmetrically aerated without evidence of mas s, infiltrate or effusion. The cardiomediastinal contours are unremarkable. Osseous structures are intact. Left-sided pacing device. Single lead noted. No fractures appreciated within the lead. CONCLUSION: No acute disease. Tl Tellez Jr., MD on January 24, 2018 at 2:30 Board Certified Radiologist. This report was verified electronically.
--- NOTE | 2018-01-24 23:27 | EKG ---
Date Performed: 01/24/2018 Time Performed: 02:08:08 PTAGE: 82 years EKG: Sinus rhythm WITH SINUS ARRHYTHMIA POSSIBLE ANTERIOR MYOCARDIAL INFARCTION POSSIBLE INFERIOR MYOCARDIAL INFARCTIO N ABNORMAL ECG PREVIOUS TRACING : 01/22/2018 20.57 Since the previous tracing, no significant change noted DOCTOR: Yossi Venegas Interpretating Date/Time 01/24/2018 23:25:38
== END 2018-01-24 03:52 | disposition home or self-care (01) ==
LOC: NEPE 01:36
DX: Z13.89 Encounter for screening for other disorder (principal); I49.9 Cardiac arrhythmia, unspecified; I11.0 Hypertensive heart disease with heart failure; I50.9 Heart failure, unspecified; I48.91 Unspecified atrial fibrillation; E78.00 Pure hypercholesterolemia, unspecified; F41.9 Anxiety disorder, unspecified; F32.9 Major depressive disorder, single episode, unspecified; Z95.1 Presence of aortocoronary bypass graft; Z95.810 Presence of automatic (implantable) cardiac defibrillator; Z79.82 Long term (current) use of aspirin; Z79.899 Other long term (current) drug therapy
CPT/HCPCS: 71045; 80053; 82550; 82552; 83690; 83880; 84484; 85025; 85610; 85730; 93005; 96360; 96361; 99285; J7040

== ENCOUNTER 2018-08-28 17:38 | Inpatient (IN) ==
[2018-08-28 18:29] LABS: Baso % (Auto) 0.6 % (0.0-2.0); Eos # (Auto) 0.4 th/mm3 (0.0-0.4); Eos % (Auto) 5.6 % (0.0-4.0); Hematocrit 33.5 % (39.0-51.0); Hemoglobin 11.6 gm/dL (13.0-17.0); Lymph # (Auto) 1.4 th/mm3 (1.0-4.8); Lymph % (Auto) 21.3 % (9.0-44.0); Mean Corpuscular HGB Conc 34.5 % (32.0-36.0); Mean Corpuscular Hemoglobin 30.9 pg (27.0-34.0); Mean Corpuscular Volume 89.6 fL (80.0-100.0); Mean Platelet Volume 8.2 fL (7.0-11.0); Mono # (Auto) 0.8 th/mm3 (0.0-0.9); Mono % (Auto) 11.6 % (0.0-8.0); Neut # (Auto) 4.1 th/mm3 (1.8-7.7); Neut % (Auto) 60.9 % (16.0-70.0); Platelet Count 152 th/mm3 (150-450); Red Blood Count 3.74 mil/mm3 (4.50-5.90); Red Cell Distribution Width 15.3 % (11.6-17.2); White Blood Count 6.7 th/mm3 (4.0-11.0)
[2018-08-28 18:34] LABS: Activated Partial Thrombo Time 26.4 sec (24.3-30.1); Prothrombin Time 10.6 sec (9.8-11.6)
[2018-08-28] MEDS: Sod Chloride 0.9% Inj 1,000 ML IV.CONT SCH (18:45)
[2018-08-28 18:46] LABS: Magnesium 2.3 mg/dL (1.5-2.5)
[2018-08-28 18:50] LABS: Creatine Kinase 98 U/L (39-308)
--- NOTE | 2018-08-28 19:32 | XR ---
EXAM DATE: 08/28/2018 6:03 PM EDT AGE/SEX: 83 years / Male INDICATIONS: Short of breath. CLINICAL DATA: This is the patient's initial encounter. Patient reports that signs and symptoms have been present for 1 day and indicates a pain score of 5/10. MEDICAL/SURGICAL HISTORY: Hypertension. Cardiovascular disease. CABG. Pacemaker. COMPARISON: [facility], CHEST 1V SINGLE AP, 07/14/2018. . FINDINGS: The patient is status post sternotomy. There is a pacing/ACD device in place over the left chest. The re is mild hazy density seen at the left base. Right lung is grossly clear. The costophrenic angles a re clear. Clips are seen over the left neck. CONCLUSION: Mild increased density at the left base likely related to mild atelectasis or consolidation. Electronically signed by: Guero Chavez MD 08/28/2018 7:31 PM EDT
--- NOTE | 2018-08-28 19:52 | ED ---
HPI General Chief complaint: Testing Shaking Shipping Problem Stated complaint: Testing Shaking Shipping Time Seen by Provider: 08/28/18 17:58 Source: patient, EMS, RN notes reviewed and old records reviewed Mode of arrival: EMS History of Present Illness HPI narrative: 83yM presenting with TIA and AICD discharge. The patient states that around 5:15 PM, he had sudden-onset left visual field loss and numbness/ weakness of his right arm which lasted approximately 5 minutes and completely resolved. Just after this event, he felt his AICD discharge once. Denies any symptoms currently and reports no palpitations, chest pain, lightheadedness/ dizziness, diaphoresis, or shortness of breath either prior to or following this incident. 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 Related Data Home Medications Medication Instructions Recorded Confirmed aspirin [Aspirin Low Dose] 81 mg PO DAILY 05/30/18 08/28/18 carvedilol 6.25 mg PO BID 05/30/18 08/28/18 lithium carbonate 150 mg PO BID 05/30/18 08/28/18 Allergies Allergy/AdvReac Type Severity Reaction Status Date / Time No Known Allergies Allergy Verified 05/31/18 00:31 Review of Systems ROS: all other systems reviewed are negative Constitutional Denies fever(s) Eyes Reports loss of vision ENT Denies nasal congestion Cardiovascular Denies chest pain Respiratory Denies cough Gastrointestinal Denies nausea Genitourinary Denies dysuria Musculoskeletal Denies back pain Neurologic Denies confusion, Reports numbness and Reports weakness Psychiatric Denies confusion PMFSH History History Provided By: Patient Medical History Medical History Pacemaker (Acute) Atrial fibrillation (Acute) Bipolar disorder (Acute) Heart failure (Acute) Hernia (Acute) High cholesterol (Acute) Surgical History Surgical History History of heart bypass surgery (Acute) Social History Social History Substance History: No History of Abuse Second Hand Smoke Exposure: No Smoking Status: Never smoker Tobacco Type: Cigarettes How Often Do You Have a Drink Containing Alcohol: Never Immunization History Tetanus Immunization: Unsure Exam Const General: healthy appearing and no acute distress HENMT Head: normocephalic and atraumatic Face and sinus: normal facial exam Eyes General: appearance normal, both eyes and all related structures Pupils: PERRL Chest Chest: normal inspection of the chest Resp Effort & Inspection: normal respiratory effort Auscultation: no rhonchi and no wheezes Cardio Rate: regular rate Rhythm: regular rhythm GI Inspection: non-distended Palpation: soft and nontender Skin General: no rashes or lesions noted Neuro General: alert, awake, oriented x3 and no focal motor deficits Other: circulation analyst II-XII intact Speech clear and fluent, no slurred speech or aphasia Motor strength 5/5 and sensation intact to all extremities, no pronator drift No focal neuro deficits Psych Affect: normal affect Course Initial Documented Vital Signs Temperature 97.9 F 08/28/18 17:48 Pulse Rate 75 08/28/18 17:48 Respiratory Rate 18 08/28/18 17:48 Blood Pressure 130/64 08/28/18 17:48 Pulse Oximetry 96 08/28/18 17:48 Last Documented Vital Signs Temperature 97.9 F 08/28/18 17:52 Pulse Rate 84 08/28/18 17:52 Respiratory Rate 20 08/28/18 17:52 Blood Pressure 130/64 08/28/18 17:52 Pulse Oximetry 99 08/28/18 18:03 NIH Stroke Scale NIHSS Time Completed NIHSS Time Completed: 17:58 NIH Stroke Scale Level of Consciousness: 0-Alert Orientation Questions: 0-Answers both correct Responds to Commands: 0-Both tasks correct Gaze Eye Movement: 0-Horizontal movement WNL Visual Marks: 0-No visual field defect Facial Movement: 0-Normal Motor Functions Arm LEFT: 0-No drift Motor Functions Arm RIGHT: 0-No drift Motor Functions Leg LEFT: 0-No drift Motor Functions Leg RIGHT: 0-No drift Limb Ataxia: 0-No ataxia Sensory Loss: 0-No sensory loss Best Language: 0-Normal Articulation: 0-Normal Extinction or Inattention Sensory: 0-Absent Total: 0 Medical Decision Making MDM Narrative Medical decision making narrative: Assessment: 83yM presenting with TIA and AICD discharge Plan: EKG and monitor Labs CTH, CTA head and neck Patient cannot get MRI as he has an AICD Patient's pacer interrogated by [employer], found to have 31 episodes of A fib with RVR in 120-130s since last ED visit (07/30/18) Addendum: Case discussed with Dr. Alan for admission. This patient cannot go home as he has paroxysmal rapid A fib with TIA, will need further workup and possibly to be started on anticoagulation. Medical Screen Exam Complete: Yes Emergency Medical Condition: Yes Differential Diagnosis Differential Diagnosis: Differential diagnosis includes, but is not limited to: arrhythmia, TIA/ CVA, electrolyte abnormality, anemia, ACS, ICH Medical Records Medical records reviewed: Yes I reviewed the patient's medical records. Lab Data Lab results reviewed: Yes I reviewed the patient's lab results. Result diagrams: 08/28/18 18:10 08/28/18 18:10 Lab Results 08/28/18 08/28/18 08/28/18 Range/Units 18:10 18:10 18:10 WBC 6.7 (4.0-11.0) th/mm3 RBC 3.74 L (4.50-5.90) mil/mm3 Hgb 11.6 L (13.0-17.0) gm/dL Hct 33.5 L (39.0-51.0) % MCV 89.6 (80.0-100.0) fL MCH 30.9 (27.0-34.0) pg MCHC 34.5 (32.0-36.0) % RDW 15.3 (11.6-17.2) % Plt Count 152 (150-450) th/mm3 MPV 8.2 (7.0-11.0) fL Neut % (Auto) 60.9 (16.0-70.0) % Lymph % (Auto) 21.3 (9.0-44.0) % [place] % (Auto) 11.6 H (0.0-8.0) % Eos % (Auto) 5.6 H (0.0-4.0) % Baso % (Auto) 0.6 (0.0-2.0) % Neut # (Auto) 4.1 (1.8-7.7) th/mm3 Lymph # (Auto) 1.4 (1.0-4.8) th/mm3 [place] # (Auto) 0.8 (0.0-0.9) th/mm3 Eos # (Auto) 0.4 (0.0-0.4) th/mm3 Baso # (Auto) 0.0 (0.0-0.2) th/mm3 WBC Differential . Differential Comment Auto diff final PT 10.6 (9.8-11.6) sec INR 1.0 Ratio APTT 26.4 (24.3-30.1) sec Sodium (136-145) meq/L Potassium (3.5-5.1) meq/L Chloride (98-107) meq/L Carbon Dioxide (21.0-32.0) meq/L Anion Gap (5-15) meq/L BUN (7-18) mg/dL Creatinine (0.60-1.30) mg/dL Estimated GFR (>89) mL/min Random Glucose (74-106) mg/dL Calcium (8.5-10.1) mg/dL Magnesium 2.3 (1.5-2.5) mg/dL Total Creatine Kinase 98 (39-308) U/L Troponin I Less than 0.02 L (0.02-0.05) ng/mL Blood Type Blood Type Recheck Antibody Screen 08/28/18 08/28/18 Range/Units 18:10 18:10 WBC (4.0-11.0) th/mm3 RBC (4.50-5.90) mil/mm3 Hgb (13.0-17.0) gm/dL Hct (39.0-51.0) % MCV (80.0-100.0) fL MCH (27.0-34.0) pg MCHC (32.0-36.0) % RDW (11.6-17.2) % Plt Count (150-450) th/mm3 MPV (7.0-11.0) fL Neut % (Auto) (16.0-70.0) % Lymph % (Auto) (9.0-44.0) % [place] % (Auto) (0.0-8.0) % Eos % (Auto) (0.0-4.0) % Baso % (Auto) (0.0-2.0) % Neut # (Auto) (1.8-7.7) th/mm3 Lymph # (Auto) (1.0-4.8) th/mm3 [place] # (Auto) (0.0-0.9) th/mm3 Eos # (Auto) (0.0-0.4) th/mm3 Baso # (Auto) (0.0-0.2) th/mm3 WBC Differential Differential Comment PT (9.8-11.6) sec INR Ratio APTT (24.3-30.1) sec Sodium 142 (136-145) meq/L Potassium 3.6 (3.5-5.1) meq/L Chloride 110 H (98-107) meq/L Carbon Dioxide 23.4 (21.0-32.0) meq/L Anion Gap 9 (5-15) meq/L BUN 28 H (7-18) mg/dL Creatinine 0.97 (0.60-1.30) mg/dL Estimated GFR 74 L (>89) mL/min Random Glucose 92 (74-106) mg/dL Calcium 8.1 L (8.5-10.1) mg/dL Magnesium (1.5-2.5) mg/dL Total Creatine Kinase (39-308) U/L Troponin I (0.02-0.05) ng/mL Blood Type A Positive Blood Type Recheck Required Antibody Screen Negative Imaging Data Radiologist's impression: Chest X-Ray 08/28/18 18:03 CONCLUSION: Mild increased density at the left base likely related to mild atelectasis or consolidation. Head CT 08/28/18 18:03 CONCLUSION: 1. No acute findings. Cortical volume loss with chronic appearing white matter ischemic changes. 2. Bilateral maxillary and left ethmoid sinusitis. . Head CTA 08/28/18 18:03 CONCLUSION: 1. No significant stenosis. 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 Neck CTA 08/28/18 18:03 CONCLUSION: 1. No carotid stenosis, dissection or aneurysm. ECG Data Attestation: I personally reviewed and interpreted this ECG as follows: Interpretation: Rate: 70 BPM Rhythm: Sinus [place]: Normal Intervals: Normal intervals, no blocks, QTc 430 ms Q waves: II, III, aVF, V2-V3 T waves: Inverted in III and aVF, V5-V6 ST segments: No elevations or depressions Impression: Non-specific EKG, no changes as compared to EKG from 07/14/2018. Discharge Plan Discharge Disposition Patient Disposition: 30 Still Patient Discharge Condition Condition: Stable Discharge Details Diagnosis: Paroxysmal atrial fibrillation with rapid ventricular response, TIA (transient ischemic attack), AICD discharge Physicians Team ED Provider: Giselle Cobb Primary Care Provider: [facility]ician 's Rxs /Orders / Referrals /Forms Prescriptions: No Action aspirin [Aspirin Low Dose] 81 mg Tablet,Delayed Release (Dr/Ec) 81 mg PO DAILY RF: 0 carvedilol 6.25 mg PO BID RF: 0 lithium carbonate 150 mg PO BID RF: 0 Discharge Interventions Interventions: Vital Signs Last Done: 08/28/18 17:52 Status ED Status: With Doctor
[2018-08-28 20:46] LABS: Calcium 8.1 mg/dL (8.5-10.1); Carbon Dioxide 23.4 meq/L (21.0-32.0); Potassium 3.6 meq/L (3.5-5.1)
--- NOTE | 2018-08-28 21:35 | CT ---
EXAM DATE: 08/28/2018 8:58 PM EDT AGE/SEX: 83 years / Male INDICATIONS: Right arm numbness and left vision diminished while walking today. CLINICAL DATA: This is the patient's initial encounter. Patient reports that signs and symptoms have been present for 1 day and indicates a pain score of 0/10. MEDICAL/SURGICAL HISTORY: Heart disease. Afib, hernia. Pacemaker. Heart surgery. RADIATION DOSE: 10.47 CTDI (mGy) ; Combined studies COMPARISON: No prior exams available for comparison. TECHNIQUE: Volumetric scanning was performed using a multi-row detector CT scanner during bolus infu lyndsay of 75 ml Omnipaque 350 (iohexol) nonionic water-soluble contrast as a cumulative dose for multi ple exams. The data was post processed with a variety of visualization algorithms including full vo lume maximum intensity projection, multi-planar sliding thin slab reformation, curved planar reformat ion, and surface rendering techniques. Using automated exposure control and adjustment of the mA and /or kV according to patient size, radiation dose was kept as low as reasonably achievable to obtain o ptimal diagnostic quality images. DICOM format image data is available electronically for review and comparison. FINDINGS: The distal internal carotid arteries are patent. There is hypoplastic left A1 segment of both anterio r, posterior and middle cerebral arteries are patent. 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 Diminutive lef t vertebral artery. CONCLUSION: 1. No significant stenosis. 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 Electronically signed by: Jesus Manuel Graham MD 08/28/2018 9:33 PM EDT
--- NOTE | 2018-08-28 21:36 | CT ---
EXAM DATE: 08/28/2018 8:58 PM EDT AGE/SEX: 83 years / Male INDICATIONS: Right arm numbness and left vision diminished while walking today. CLINICAL DATA: This is the patient's initial encounter. Patient reports that signs and symptoms have been present for 1 day and indicates a pain score of 0/10. MEDICAL/SURGICAL HISTORY: Heart disease. Afib, hernia. Pacemaker. Heart surgery. RADIATION DOSE: 56.35 CTDI (mGy) COMPARISON: No prior exams available for comparison. TECHNIQUE: CT of the head without contrast. Using automated exposure control and adjustment of the mA and/or kV according to patient size, radiation dose was kept as low as reasonably achievable to ob tain optimal diagnostic quality images. DICOM format image data is available electronically for revi ew and comparison. FINDINGS: Cerebrum: The ventricles are normal for age. No evidence of midline shift, mass lesion, hemorrhage or acute infarction. No extraaxial fluid collections are seen. Cortical volume loss. Posterior Fossa: The cerebellum and brainstem are intact. The 4th ventricle is midline. The cerebe llopontine angle is unremarkable. Extracranial: The visualized portion of the orbits is intact. Air-fluid levels in both maxillary sin uses and partial opacification left ethmoid air cells. Skull: The calvaria is intact. No evidence of skull fracture. CONCLUSION: 1. No acute findings. Cortical volume loss with chronic appearing white matter ischemic changes. 2. Bilateral maxillary and left ethmoid sinusitis. . Electronically signed by: Jesus Manuel Graham MD 08/28/2018 9:34 PM EDT
--- NOTE | 2018-08-28 21:39 | CT ---
EXAM DATE: 08/28/2018 8:58 PM EDT AGE/SEX: 83 years / Male INDICATIONS: Right arm numbness and left vision diminished while walking today. CLINICAL DATA: This is the patient's initial encounter. Patient reports that signs and symptoms have been present for 1 day and indicates a pain score of 0/10. MEDICAL/SURGICAL HISTORY: Heart disease. Afib, hernia. Pacemaker. Heart surgery. RADIATION DOSE: 10.47 CTDI (mGy) ; Combined studies COMPARISON: No prior exams available for comparison. TECHNIQUE: Volumetric scanning was performed using a multirow detector CT scanner during bolus infus ion of 75 ml Omnipaque 350 (iohexol) nonionic water-soluble contrast as a cumulative dose for multip le exams. The data was postprocessed with a variety of visualization algorithms including full-volu me maximum intensity projection, multiplanar sliding thin-slab reformation, curved-planar reformation , and surface-rendering techniques. Using automated exposure control and adjustment of the mA and/or kV according to patient size, radiation dose was kept as low as reasonably achievable to obtain opti mal diagnostic quality images. DICOM format image data is available electronically for review and co mparison. Percent stenosis is calculated using the diameter of the stenotic region over the diameter of the nor mal distal internal carotid artery. FINDINGS: The common and internal carotid arteries are patent within the neck. Vertebral arteries are patent with the left vertebral diminutive. No hemodynamically significant sten osis. No aneurysm or dissection. CONCLUSION: 1. No carotid stenosis, dissection or aneurysm. Electronically signed by: Jesus Manuel Graham MD 08/28/2018 9:37 PM EDT
--- NOTE | 2018-08-28 23:57 | P.HP ---
History of Present Illness Service: [facility] Primary Care Physician: [facility] History of Present Illness: 83-year-old male with a past medical history significant for previous TIAs, bipolar disorder, CHF, atrial fibrillation with pacemaker and hyperlipidemia presents to the emergency department for the evaluation of a "mini stroke" and AICD discharge. The patient reports that for approximately 6 minutes this afternoon he had left eye blindness and right sided paralysis. He states his episode was similar to previous TIAs that he has had in the past. He reports that he was then walking after the episode when his AICD fired. He denies any preceding palpitations. No chest pain or shortness of breath. No syncopal episode. On interrogation, the patient has had 31 episodes of A. fib with RVR since his last visit to the emergency department. He has a dinker who is at the [facility]. He is not on systemic anticoagulation despite a history of atrial fibrillation. He denies any previous preceding bleeds or frequent falls. Patient also denies fever/chills. No abdominal pain. No nausea/vomiting/ diarrhea. At this time, all of his symptoms have resolved entirely. Inpatient Certification: I certify that the inpatient services were ordered in accordance with Medicare regulations governing the order. This includes certification that hospital inpatient services are reasonable and necessary and in the case of services not specified as inpatient-only under 42 CFR 419.22(n), that they are appropriately provided as inpatient services in accordance to with the 2-midnight benchmark under 43 CFR 412.3(e) Review of Systems All other systems reviewed negative except as stated in HPI PMFSH - History History Provided By: Patient - Medical History Medical History: Medical History (Last Reviewed 08/28/18 @ 23:48 by Mery Alan MD) Pacemaker (Acute) Atrial fibrillation Bipolar disorder Heart failure Hernia High cholesterol - Surgical History Surgical History: Surgical History (Last Reviewed 08/28/18 @ 23:48 by Mery Alan MD) History of heart bypass surgery (Acute) - Family History Family History: Family History (Last Updated 08/28/18 @ 23:49 by Mery Alan MD) Other Family history normal - Tobacco History Second Hand Smoke Exposure: No Smoking Status: Never smoker Tobacco Type: Cigarettes - Alcohol History How Often Do You Have a Drink Containing Alcohol: Never - Substance Use History Substance History: No History of Abuse - Immunization History Tetanus Immunization: Unsure Medications and Allergies Active Medications: Active Medications Sodium Chloride (Ns Inj) 1,000 mls @ 70 mls/hr IV.CONT .[id number] [facility] Last Admin: 08/28/18 18:45 Dose: 70 mls/hr Allergies Allergy/AdvReac Type Severity Reaction Status Date / Time No Known Allergies Allergy Verified 05/31/18 00:31 Home Medications Medication Instructions Recorded Confirmed Type aspirin [Aspirin Low Dose] 81 mg PO DAILY 05/30/18 08/28/18 History carvedilol 6.25 mg PO BID 05/30/18 08/28/18 History lithium carbonate 150 mg PO BID 05/30/18 08/28/18 History Exam Vital signs: Vital Signs 08/28/18 17:48 08/28/18 17:52 08/28/18 18:03 Temperature 97.9 F 97.9 F Pulse Rate 75 84 Respiratory Rate 18 20 Blood Pressure 130/64 130/64 Pulse Oximetry 96 97 99 Intake & Output 08/28/18 08/28/18 08/29/18 06:59 18:59 06:59 Weight 70.307 kg Narrative: Gen.: No acute distress Head: Normocephalic. Atraumatic. EENT: Pupils equal round and reactive to light. Nose without drainage. Airway intact. Throat without injection. Cardiovascular: Regular rate and rhythm. No murmurs, rubs or gallops. Respiratory: Lungs clear to auscultation bilaterally. No wheezes or rhonchi. Abdomen: Soft, nontender, nondistended. No peritoneal signs. Musculoskeletal: No gross deformities. No edema. Skin: No obvious rashes or erythema. Neuro: Cranial nerves II through XII intact. Strength 5/5 throughout. Normal speech. Results - Labs CBC & Chem 7: 08/28/18 18:10 08/28/18 18:10 Labs: Laboratory Results - last 24 hr 08/28/18 08/28/18 08/28/18 18:10 18:10 18:10 WBC 6.7 RBC 3.74 L Hgb 11.6 L Hct 33.5 L MCV 89.6 MCH 30.9 MCHC 34.5 RDW 15.3 Plt Count 152 MPV 8.2 Neut % (Auto) 60.9 Lymph % (Auto) 21.3 [place] % (Auto) 11.6 H Eos % (Auto) 5.6 H Baso % (Auto) 0.6 Neut # (Auto) 4.1 Lymph # (Auto) 1.4 [place] # (Auto) 0.8 Eos # (Auto) 0.4 Baso # (Auto) 0.0 WBC Differential . Differential Comment Auto diff final PT 10.6 INR 1.0 APTT 26.4 Sodium Potassium Chloride Carbon Dioxide Anion Gap BUN Creatinine Estimated GFR Random Glucose Calcium Magnesium 2.3 Total Creatine Kinase 98 Troponin I Less than 0.02 L Blood Type Blood Type Recheck Antibody Screen 08/28/18 08/28/18 18:10 18:10 WBC RBC Hgb Hct MCV MCH MCHC RDW Plt Count MPV Neut % (Auto) Lymph % (Auto) [place] % (Auto) Eos % (Auto) Baso % (Auto) Neut # (Auto) Lymph # (Auto) [place] # (Auto) Eos # (Auto) Baso # (Auto) WBC Differential Differential Comment PT INR APTT Sodium 142 Potassium 3.6 Chloride 110 H Carbon Dioxide 23.4 Anion Gap 9 BUN 28 H Creatinine 0.97 Estimated GFR 74 L Random Glucose 92 Calcium 8.1 L Magnesium Total Creatine Kinase Troponin I Blood Type A Positive Blood Type Recheck Required Antibody Screen Negative - Imaging Impressions Chest X-Ray 08/28/18 18:03 CONCLUSION: Mild increased density at the left base likely related to mild atelectasis or consolidation. Head CT 08/28/18 18:03 CONCLUSION: 1. No acute findings. Cortical volume loss with chronic appearing white matter ischemic changes. 2. Bilateral maxillary and left ethmoid sinusitis. . Head CTA 08/28/18 18:03 CONCLUSION: 1. No significant stenosis. 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 Neck CTA 08/28/18 18:03 CONCLUSION: 1. No carotid stenosis, dissection or aneurysm. Caprini VTE Risk Assessment Caprini VTE Risk Assessment: Moderate/High Risk (score >= 2) Caprini Risk Assessment Model: Point Value = 1 Point Value = 2 Point Value = 3 Point Value = 5 Age 41-60 Minor surgery BMI > 25 kg/m2 Swollen legs Varicose veins or History of unexplained or recurrent spontaneous Oral contraceptives or hormone replacement Sepsis (< 1 month) Serious lung disease, including pneumonia (< 1 month) Abnormal pulmonary function Acute myocardial infarction Congestive heart failure (< 1 month) History of inflammatory bowel disease Medical patient at bed rest Age 61-74 Arthroscopic surgery Major open surgery (> 45 min) Laparoscopic surgery (> 45 min) Malignancy Confined to bed (> 72 hours) Immobilizing plaster cast Central venous access Age >= 75 History of VTE Family history of VTE Factor V Leiden Prothrombin [id number] Lupus anticoagulant Anticardiolipin antibodies Elevated serum homocysteine Heparin-induced thrombocytopenia Other congenital or acquired thrombophilia Stroke (< 1 month) Elective arthroplasty Hip, pelvis, or leg fracture Acute spinal cord injury (< 1 month) Prophylaxis Regimen: Total Risk Factor Score Risk Level Prophylaxis Regimen 0-1 Low Early ambulation 2 Moderate Order ONE of the following: *Sequential Compression Device (SCD) *Heparin 5000 units SQ BID 3-4 Higher Order ONE of the following medications: *Heparin 5000 units SQ TID *Enoxaparin/Lovenox 40 mg SQ daily (WT < 150 kg, CrCl > 30 mL/min) *Enoxaparin/Lovenox 30 mg SQ daily (WT < 150 kg, CrCl > 10-29 mL/min) *Enoxaparin/Lovenox 30 mg SQ BID (WT < 150 kg, CrCl > 30 mL/min) AND/OR *Sequential Compression Device (SCD) 5 or more Highest Order ONE of the following medications: *Heparin 5000 units SQ TID (Preferred with Epidurals) *Enoxaparin/Lovenox 40 mg SQ daily (WT < 150 kg, CrCl > 30 mL/min) *Enoxaparin/Lovenox 30 mg SQ daily (WT < 150 kg, CrCl > 10-29 mL/min) *Enoxaparin/Lovenox 30 mg SQ BID (WT < 150 kg, CrCl > 30 mL/min) AND *Sequential Compression Device (SCD) Assessment and Plan - Plan Assessment/plan: 1. AICD discharge/atrial fibrillation with RVR EKG in the emergency department shows normal sinus rhythm, pulse 71 Pacemaker interrogation reveals 31 episodes of A. fib with RVR to the 120s through 130s Echo pending Cardiology consulted, appreciate assistance Patient not currently on anticoagulation without history of bleeds or falls Therapeutic Lovenox Continue carvedilol 2. TIA Head CT negative for acute process Head and neck CTA negative for stenosis Neurology consulted, appreciate assistance 3. CHF/CAD Continue home medications 4. Bipolar disorder Continue home lithium FEN N.p.o. Electrolytes: Monitor and replete as needed Ns at 70 cc/hr Therapeutic Lovenox
[2018-08-29 04:54] LABS: Baso % (Auto) 0.5 % (0.0-2.0); Eos # (Auto) 0.4 th/mm3 (0.0-0.4); Hematocrit 33.4 % (39.0-51.0); Hemoglobin 11.5 gm/dL (13.0-17.0); Lymph # (Auto) 1.4 th/mm3 (1.0-4.8); Lymph % (Auto) 22.8 % (9.0-44.0); Mean Corpuscular HGB Conc 34.4 % (32.0-36.0); Mean Corpuscular Hemoglobin 30.4 pg (27.0-34.0); Mean Corpuscular Volume 88.5 fL (80.0-100.0); Mean Platelet Volume 8.5 fL (7.0-11.0); Mono # (Auto) 0.7 th/mm3 (0.0-0.9); Mono % (Auto) 10.6 % (0.0-8.0); Neut # (Auto) 3.6 th/mm3 (1.8-7.7); Neut % (Auto) 59.1 % (16.0-70.0); Platelet Count 149 th/mm3 (150-450); Red Blood Count 3.78 mil/mm3 (4.50-5.90); Red Cell Distribution Width 15.1 % (11.6-17.2); White Blood Count 6.1 th/mm3 (4.0-11.0)
[2018-08-29 05:28] LABS: Anion Gap 6 meq/L (5-15); Blood Urea Nitrogen 19 mg/dL (7-18); Calcium 7.4 mg/dL (8.5-10.1); Carbon Dioxide 24.7 meq/L (21.0-32.0); Chloride 113 meq/L (98-107); Chol/HDL Ratio 2.54 Ratio; Cholesterol 91 mg/dL (120-200); Glomerular Filtration Rate Greater Than 89 mL/min (>89); Glucose,Random 80 mg/dL (74-106); HDL Cholesterol 35.7 mg/dL (40.0-60.0); LDL Cholesterol,Calculated 43 mg/dL (0-99); Potassium 3.6 meq/L (3.5-5.1); Sodium 144 meq/L (136-145); Triglycerides 63 mg/dL (42-150)
[2018-08-29 05:45] LABS: Total Protein 6.1 g/dL (6.4-8.2)
[2018-08-29] MEDS ORDERED: Aspirin 325 MG Tablet PO SCH (09:00)
[2018-08-29] MEDS: Carvedilol 6.25 MG Tablet PO SCH ×2 (09:06→22:45)
[2018-08-29] MEDS: Sod Chloride 0.9% Inj 1,000 ML IV.CONT SCH (11:30)
--- NOTE | 2018-08-29 11:52 | MB ---
cc: Jeanne Bauer MD DATE: 08/29/2018 REASON FOR CONSULTATION: Transient ischemic attack. HISTORY OF PRESENT ILLNESS: This is an 83-year-old man with a history of TIA, bipolar disorder, CHF, atrial fibrillation with pacemaker defibrillator, hyperlipidemia; came in with what he describes as his mini stroke. When it occurs, he gets some blindness in the left eye and some right-sided weakness that has now resolved. He states he follows [facility]. He tells me that he needs to get carotid surgery. He states he has had 4 firings of his AICD in the last couple of years. He is ambulating around the room and he denies any chest pain, shortness of breath. 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 PAST MEDICAL HISTORY: As stated. PAST SURGICAL HISTORY: Bypass in the past. FAMILY HISTORY: Noncontributory. SOCIAL HISTORY: Does not smoke. No abuse history. PHYSICAL EXAMINATION: VITAL SIGNS: Temperature 98.1, pulse 60, respiratory rate 18, blood pressure 123/79, saturating at 96% on room air. NECK: Supple. I do not appreciate any bruits. HEART: Currently is regular. NEUROLOGIC: She is awake, alert. Speech is normal. Pupils reactive. Visual orozco full. Face symmetrical. Tongue midline. Motor: He is ambulating in the room. I do not see any drift or leg lag. No circumducting gait. Reflexes normal. Sensory normal. LABORATORY DATA: Labs are reviewed. Hemoglobin is 11.5, platelets 149,000. Coag panel normal. Chemistries: His calcium is 7.4 currently. Hemoglobin A1c is pending. Cholesterol 91, LDL 43, HDL 35.7. Triglycerides 63. REPORTS: 1. The patient's CT of the head was unremarkable for anything acute, volume loss, white matter changes, sinus disease. 2. CTA of the platinum of [place] shows no significant stenosis. 3. CTA of the carotids; no stenosis either. IMPRESSION: 1. Questionable transient ischemic attack. 2. History of atrial fibrillation. The patient will undergo an echo. He is on right now, per chart, Lovenox 70 mg every 12 hours. If no contraindications from my perspective, certainly he can be anticoagulated. At this point in time, no other testing per Neurology. We will defer any further workup per Cardiology as needed. I do not know what he means by his carotids. His carotids did not show any acute disease. Continue his home medications. Discharge planning when stable. MD RADHA Trammell/derek , 11:37 AM , 11:44 AM
--- NOTE | 2018-08-29 11:58 | P.PNIM ---
Subjective Interval history: Patient dressed and states he is ready to go home. He denies chest pain or shortness of breath. No neuro symptoms. He is hungry and wants to eat. Physical Exam Vital signs: Vital Signs 08/28/18 17:48 08/28/18 17:52 08/28/18 18:03 Temperature 97.9 F 97.9 F Pulse Rate 75 84 Respiratory Rate 18 20 Blood Pressure 130/64 130/64 Pulse Oximetry 96 97 99 08/28/18 23:15 08/29/18 00:00 08/29/18 00:15 Temperature 97.6 F Pulse Rate 67 93 H Respiratory Rate 16 Blood Pressure 150/84 H Pulse Oximetry 98 98 08/29/18 01:21 08/29/18 01:27 08/29/18 02:00 Temperature 97.9 F Pulse Rate 66 62 60 Respiratory Rate 16 Blood Pressure 122/72 Pulse Oximetry 96 08/29/18 03:00 08/29/18 03:46 08/29/18 04:00 Temperature 98 F Pulse Rate 61 65 69 Respiratory Rate 16 Blood Pressure 134/73 Pulse Oximetry 96 08/29/18 05:00 08/29/18 05:46 08/29/18 06:00 Temperature 98.1 F Pulse Rate 79 61 61 Respiratory Rate 16 Blood Pressure 139/73 Pulse Oximetry 97 08/29/18 07:00 08/29/18 07:46 08/29/18 08:00 Temperature 98.1 F Pulse Rate 94 H 59 L 64 Respiratory Rate 18 Blood Pressure 123/79 Pulse Oximetry 96 96 08/29/18 09:00 Temperature Pulse Rate 60 Respiratory Rate Blood Pressure Pulse Oximetry Intake & Output 08/28/18 08/29/18 08/29/18 18:59 06:59 18:59 Output Total 600 / 600 Balance -600 / -600 Weight 70.307 kg 72.8 kg Output: Urine 600 / 600 Other: # Bowel Movements 0 Narrative: GENERAL: This is a well-nourished, well-developed patient, in no apparent distress. CARDIOVASCULAR: Normal rate and regular rhythm without murmurs, gallops, or rubs. RESPIRATORY: Good respiratory efforts. Breath sounds equal and clear to auscultation bilaterally. GASTROINTESTINAL: Abdomen soft, non-tender, non-distended. Normal active bowel sounds MUSCULOSKELETAL: Extremities without cyanosis, or edema. NEURO: Alert & Oriented x4 to person, place, time, situation. Moves all ext x4 PSYCH: Appropriate mood and affect. Results - Labs CBC & Chem 7: 08/29/18 03:42 08/29/18 03:42 Laboratory Results - last 24 hr 08/28/18 08/28/18 08/28/18 18:10 18:10 18:10 WBC 6.7 RBC 3.74 L Hgb 11.6 L Hct 33.5 L MCV 89.6 MCH 30.9 MCHC 34.5 RDW 15.3 Plt Count 152 MPV 8.2 Neut % (Auto) 60.9 Lymph % (Auto) 21.3 [place] % (Auto) 11.6 H Eos % (Auto) 5.6 H Baso % (Auto) 0.6 Neut # (Auto) 4.1 Lymph # (Auto) 1.4 [place] # (Auto) 0.8 Eos # (Auto) 0.4 Baso # (Auto) 0.0 WBC Differential . Differential Comment Auto diff final PT 10.6 INR 1.0 APTT 26.4 Sodium Potassium Chloride Carbon Dioxide Anion Gap BUN Creatinine Estimated GFR Random Glucose Calcium Prot Corrected Calcium Magnesium 2.3 Total Creatine Kinase 98 Troponin I Less than 0.02 L Total Protein Triglycerides Cholesterol LDL Cholesterol, Calc HDL Cholesterol Cholesterol/HDL Ratio Blood Type Blood Type Recheck Antibody Screen 08/28/18 08/28/18 08/29/18 18:10 18:10 03:42 WBC 6.1 RBC 3.78 L Hgb 11.5 L Hct 33.4 L MCV 88.5 MCH 30.4 MCHC 34.4 RDW 15.1 Plt Count 149 L MPV 8.5 Neut % (Auto) 59.1 Lymph % (Auto) 22.8 [place] % (Auto) 10.6 H Eos % (Auto) 7.0 H Baso % (Auto) 0.5 Neut # (Auto) 3.6 Lymph # (Auto) 1.4 [place] # (Auto) 0.7 Eos # (Auto) 0.4 Baso # (Auto) 0.0 WBC Differential . Differential Comment Auto diff final PT INR APTT Sodium 142 Potassium 3.6 Chloride 110 H Carbon Dioxide 23.4 Anion Gap 9 BUN 28 H Creatinine 0.97 Estimated GFR 74 L Random Glucose 92 Calcium 8.1 L Prot Corrected Calcium Magnesium Total Creatine Kinase Troponin I Total Protein Triglycerides Cholesterol LDL Cholesterol, Calc HDL Cholesterol Cholesterol/HDL Ratio Blood Type A Positive Blood Type Recheck Required Antibody Screen Negative 08/29/18 03:42 WBC RBC Hgb Hct MCV MCH MCHC RDW Plt Count MPV Neut % (Auto) Lymph % (Auto) [place] % (Auto) Eos % (Auto) Baso % (Auto) Neut # (Auto) Lymph # (Auto) [place] # (Auto) Eos # (Auto) Baso # (Auto) WBC Differential Differential Comment PT INR APTT Sodium 144 Potassium 3.6 Chloride 113 H Carbon Dioxide 24.7 Anion Gap 6 BUN 19 H Creatinine 0.75 Estimated GFR Greater than 89 Random Glucose 80 Calcium 7.4 L* Prot Corrected Calcium 7.9 L Magnesium Total Creatine Kinase Troponin I Total Protein 6.1 L Triglycerides 63 Cholesterol 91 L LDL Cholesterol, Calc 43 HDL Cholesterol 35.7 L Cholesterol/HDL Ratio 2.54 Blood Type Blood Type Recheck Antibody Screen - Imaging Impressions Chest X-Ray 08/28/18 18:03 CONCLUSION: Mild increased density at the left base likely related to mild atelectasis or consolidation. Head CT 08/28/18 18:03 CONCLUSION: 1. No acute findings. Cortical volume loss with chronic appearing white matter ischemic changes. 2. Bilateral maxillary and left ethmoid sinusitis. . Head CTA 08/28/18 18:03 CONCLUSION: 1. No significant stenosis. 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 Neck CTA 08/28/18 18:03 CONCLUSION: 1. No carotid stenosis, dissection or aneurysm. Assessment and Plan - Plan 83-year-old male admitted for: AICD discharge/atrial fibrillation with RVR EKG in the emergency department shows normal sinus rhythm, pulse 71 Pacemaker interrogation reveals 31 episodes of A. fib with RVR to the 120s through 130s Echo pending Cardiology consulted, appreciate assistance Patient not currently on anticoagulation without history of bleeds or falls. Therapeutic Lovenox Continue carvedilol Questionable TIA Head CT negative for acute process Head and neck CTA negative for stenosis Appreciate input from neurology, no further neurological workup recommended at this point. CHF/CAD Continue home medications Bipolar disorder Continue home dose lithium Discharge Planning: Patient is advised it is not safe to leave the hospital without further evaluation at this time. Awaiting cardiology consults. He agreed to stay in the hospital and continue treatment.
[2018-08-29 16:57] VITALS: TEMP 97.9
--- NOTE | 2018-08-29 16:58 | ECHRPT ---
Indication: CVA/TIA CONCLUSIONS Technically limited study. The left ventricular systolic function is moderately reduced with an estimated ejection fraction in the range of 40-45%. There is abnormal septal motion. A pacemaker wire is noted. There is trace tricuspid valve regurgitation. The estimated pulmonary arterial pressure is 46 mmHg. BP: / HR: Rhythm: Sinus MEASUREMENTS (Male / Female) Normal Values Technical Quality:Very technically difficult study 2D ECHO LVOT Diameter 1.8 cm DOPPLER AV Peak Velocity 106.0 cm/s AV Peak Gradient 4.5 mmHg AV Mean Gradient 2.0 mmHg AV Velocity Time Integral 16.4 cm LVOT Peak Velocity 105.0 cm/s LVOT Peak Gradient 4.4 mmHg LVOT Velocity Time Integral 20.3 cm AV Area Cont Eq vti 3.1 cm AV Area Cont Eq pk 2.5 cm Mitral E Point Velocity 70.1 cm/s Mitral A Point Velocity 50.8 cm/s Mitral E to A Ratio 1.4 LV E' Septal Velocity 4.4 cm/s Mitral E to LV E' Septal Ratio 16.0 TR Peak Velocity 301.0 cm/s TR Peak Gradient 36.2 mmHg Right Atrial Pressure 10.0 mmHg Pulmonary Artery Systolic Pressu 46.2 mmHg Right Ventricular Systolic Press 46.2 mmHg FINDINGS LEFT VENTRICLE The left ventricular systolic function is moderately reduced with an estimated ejection fraction in the range of 40-45%. There is abnormal septal motion. RIGHT VENTRICLE The right ventricle was not well visualized. A pacemaker wire is noted. LEFT ATRIUM The left atrial size is normal. RIGHT ATRIUM There is a pacemaker wire present in the right atrial cavity. ATRIAL SEPTUM The interatrial septum not well visualized. AORTA The aortic root and proximal ascending aorta are not well visualized. MITRAL VALVE Structurally normal mitral valve. No mitral valve stenosis or regurgitation. AORTIC VALVE The aortic valve is not well visualized. TRICUSPID VALVE There is trace tricuspid valve regurgitation. The estimated pulmonary arterial pressure is 46.2 mmHg. PULMONARY VALVE The pulmonary valve is not well visualized. VESSELS The inferior vena cava was not well visualized. PERICARDIUM No pericardial effusion. Flakita Agustin MD, FACC (Electronically Signed) Final Date:29 August 2018 16:57
[2018-08-29 17:00] LABS: Hemoglobin A1c 4.7 % (4.3-6.0)
--- NOTE | 2018-08-29 18:37 | ECG ---
Date Performed: 08/28/2018 Time Performed: 18:03:27 PTAGE: 83 years EKG: Sinus rhythm WITH SHORT WA INTERVAL WITH OCCASIONAL ECTOPIC PREMATURE COMPLEXES ANTERIOR MYOCARDIAL INFARCTION PO SSIBLE INFERIOR MYOCARDIAL INFARCTION ABNORMAL ECG PREVIOUS TRACING : 07/14/2018 07.26 Since the previous tracing, no significant change noted DOCTOR: Gabriel Hathaway Interpretating Date/Time 08/29/2018 18:35:50
[2018-08-30] MEDS ORDERED: Enoxaparin Inj 80 MG/0.8 ML Syringe SQ SCH
--- NOTE | 2018-08-30 00:14 | MB ---
cc: Mil Jordan DO DATE: 08/29/2018 REASON FOR CONSULTATION: AICD discharge, atrial fibrillation, TIA. HISTORY OF PRESENT ILLNESS: Twin Parker is a pleasant 83-year-old male who presented to [facility] Emergency Room due to multiple reasons. Apparently, he reports for approximately 6 minutes this afternoon that he had left eye blindness with right-sided paralysis. He states that he has had this multiple times before. He believes that is due to a blockage in his carotid per his doctor. He states then later on he was walking around, and he felt his AICD fire. Because of all this, he came to the emergency room. In seeing him, he is currently hemodynamically stable without chest pain or shortness of breath. PAST MEDICAL HISTORY: 1. Atrial fibrillation. 2. Bipolar disorder. 3. Heart failure. 4. Hernia. 5. Hyperlipidemia. 6. History of multiple TIAs. PAST SURGICAL HISTORY: 1. Coronary artery bypass grafting. 2. AICD implantation. 3. Left CEA. ALLERGIES: NO KNOWN DRUG ALLERGIES. MEDICATIONS: 1. Aspirin 81 mg daily. 2. [place] 150 mg b.i.d. 3. Carvedilol 6.25 mg b.i.d. FAMILY HISTORY: He denies premature coronary artery disease or sudden cardiac within the family. SOCIAL HISTORY: The patient denies current tobacco, alcohol, or drug abuse. REVIEW OF SYSTEMS: Fourteen systems were reviewed including osteopathic. Pertinent positives and negatives above, otherwise negative. PHYSICAL EXAMINATION: VITAL SIGNS: Temperature 98.1, heart rate 62, blood pressure 122/72, respirations 18, pulse oximetry 96% on room air. GENERAL: The patient appears well, in no acute distress. Alert, awake and oriented x3. HEENT: Extraocular muscles intact. Mucous membranes moist. NECK: Supple. No JVD at 45 degrees. No carotid bruits heard bilaterally. Carotid upstroke is brisk in nature. HEART: Regular rate and rhythm. Positive first and second heart sounds with no noted murmurs, gallops, or rubs. LUNGS: Clear to auscultation bilaterally. No wheezes, rales, or rhonchi. ABDOMEN: Soft, nontender, nondistended. No organomegaly noted. EXTREMITIES: No clubbing, cyanosis or edema. Femoral and distal pulses are intact bilaterally. NEUROLOGIC: No focal deficits. SKIN: Warm, dry, and intact. OSTEOPATHIC: No kyphoscoliosis, lordosis, or paraspinal tender points. LABORATORY DATA: Hemoglobin 11.5, hematocrit 33.4, platelets 149. Potassium 3.6, BUN 19, creatinine 0.75. Troponin less than 0.02. Electrocardiogram (08/28/2018 at 1803): Sinus rhythm, short PA interval, possible inferior myocardial infarction. IMPRESSION: 1. Automatic implantable cardioverter-defibrillator discharge. 2. Possible transient ischemic attack. 3. Paroxysmal atrial fibrillation, not currently on anticoagulation. 4. Chronic systolic heart failure. 5. Bipolar disorder. 6. Hyperlipidemia. RECOMMENDATIONS: 1. Mr. Parker presented due to multiple issues as above. Interrogation of his ICD shows that he had 31 episode of atrial fibrillation with rapid ventricular response. We will attempt to increase his carvedilol to try to mitigate these episodes as possible. 2. He has known paroxysmal atrial fibrillation with an elevated CHADS-VASc score of at least 6. This puts him at an increased risk of further TIAs. Because of this, I am going to recommend that he be anticoagulated. I will start him on Eliquis 5 mg b.i.d. He can follow up with his sales office administrator at the [facility] for further recommendations along those lines. 3. It appears that he most likely had another episode of a TIA which he believes is due to carotid disease. CT of the neck here shows no significant disease of the carotids, and his TIA is most likely due to atrial fibrillation. 4. Once he is placed on Eliquis, Lovenox and aspirin may be stopped. Thank you for allowing me to see Twin Parker. If there are any questions, please do not hesitate to call. DO ELI Orellana/rose , 11:06 PM , 11:17 PM
[2018-08-30] MEDS: Sod Chloride 0.9% Inj 1,000 ML IV.CONT SCH (00:17)
[2018-08-30 02:27] VITALS: RESP 16
[2018-08-30 04:47] VITALS: BP 128/70; O2SAT 97
[2018-08-30 04:50] LABS: Hematocrit 38.2 % (39.0-51.0); Hemoglobin 12.9 gm/dL (13.0-17.0); Mean Corpuscular HGB Conc 33.7 % (32.0-36.0); Mean Corpuscular Hemoglobin 30.4 pg (27.0-34.0); Mean Corpuscular Volume 90.1 fL (80.0-100.0); Mean Platelet Volume 8.5 fL (7.0-11.0); Platelet Count 175 th/mm3 (150-450); Red Blood Count 4.24 mil/mm3 (4.50-5.90); Red Cell Distribution Width 15.4 % (11.6-17.2); White Blood Count 7.6 th/mm3 (4.0-11.0)
[2018-08-30 05:15] LABS: Calcium 8.2 mg/dL (8.5-10.1); Carbon Dioxide 28.1 meq/L (21.0-32.0); Potassium 4.1 meq/L (3.5-5.1)
[2018-08-30 06:00] VITALS: PULSE 64
[2018-08-30] MEDS ORDERED: Carvedilol 12.5 MG Tablet PO SCH (09:00)
== END 2018-08-30 06:57 | disposition left against medical advice (07) ==
LOC: NEPE 17:38 → NEDA 21:59 → HCIS 23:10
PROVIDERS: ADMIT Family Medicine; ATTEND Family Medicine